=== PATIENT | female | born 1965 | race Caucasian/White ===

== ENCOUNTER 2018-12-06 01:29 | Emergency (ER) | payer OTHER ==
[~2018-12-06] VITALS: Ht 167.6 cm; Wt 72.7 kg
[2018-12-06 02:28] LABS: BASOPHILS % (AUTO) 0.8 % (0.0-2.0); EOSINOPHILS % (AUTO) 4.7 % (1.0-6.0); HEMATOCRIT 45.3 % (36-46); HEMOGLOBIN 15.5 g/dL (12.0-16.0); LYMPHOCYTES # (AUTO) 2.1 K/uL (1.0-4.8); LYMPHOCYTES % (AUTO) 44.4 % (22.0-44.0); MEAN CORPUSCULAR HEMOGLOBIN 33.4 pg (26.0-34.0); MEAN CORPUSCULAR HGB CONC 34.1 G/dL (31.0-37.0); MEAN CORPUSCULAR VOLUME 98 fL (80-100); MONOCYTES # (AUTO) 0.6 K/uL (0.1-1.0); MONOCYTES % (AUTO) 12.3 % (2.0-9.0); NEUTROPHILS # (AUTO) 1.8 K/uL (1.8-7.7); NEUTROPHILS % (AUTO) 37.8 % (40.0-70.0); PLATELET COUNT (AUTO) 207 K/uL (150-450); RED BLOOD CELL COUNT(AUTO) 4.63 MIL/uL (4.00-5.20); RED CELL DISTRIBUTION WIDTH 13.1 % (11.5-14.5)
[2018-12-06 02:38] LABS: ANION GAP 6 mmol/L (8-16); CALCIUM, TOTAL 9.2 mg/dL (8.8-10.5); CARBON DIOXIDE 34 mmol/L (22-29); CHLORIDE 103 mmol/L (98-107); CREATININE 0.61 mg/dL (0.60-1.30); GLOMERULAR FILTR. RATE CALC > 60 mL/min (>60); GLUCOSE,RANDOM 93 mg/dL (70-110); POTASSIUM 3.9 mmol/L (3.5-5.1); SODIUM SERUM 143 mmol/L (136-145); UREA NITROGEN, BLOOD 7 mg/dL (7-18)
[2018-12-06 02:44] LABS: ALANINE AMINOTRANSFERASE 72 U/L (12-78); ALBUMIN 3.9 g/dL (3.4-5.0); ALKALINE PHOSPHATASE 140 U/L (46-116); ASPARTATE AMINOTRANSFERASE 47 U/L (15-37); BILIRUBIN,TOTAL 0.3 mg/dL (0.1-1.0); TOTAL PROTEIN, SERUM 8.8 g/dL (6.4-8.2)
[2018-12-06] MEDS ORDERED: IOVERSOL 350 MG/ML 100 ML VIAL ONE (07:52)
[2018-12-06 09:29] VITALS: BP 122/82
== END 2018-12-06 10:03 | disposition home or self-care (01) ==
LOC: EMS 01:29
DX: R07.9 Chest pain, unspecified (principal); R91.1 Solitary pulmonary nodule
CPT/HCPCS: 36415; 71045; 71275; 80053; 84484; 85025; 85379; 93005; 99284; Q9967